=== PATIENT | male | born 1990 | race Hispanic/Latino ===

== ENCOUNTER 2023-06-18 11:07 | Outpatient (CLI) | payer OTHER | END 2023-06-18 11:08 | disposition home or self-care (01) | LOC: CSHWCC 11:07 | PROVIDERS: ATTEND Nurse Practitioner Family | DX: T81.31XD Disruption of external operation (surgical) wound, not elsewhere classified, subsequent encounter (principal); T86.821 Skin graft (allograft) (autograft) failure; C81.70 Other Hodgkin lymphoma, unspecified site; B20 Human immunodeficiency virus [HIV] disease | CPT/HCPCS: 99213; G0463 ==

== ENCOUNTER 2023-06-22 15:05 | Outpatient (CLI) | payer OTHER | END 2023-06-22 15:06 | disposition home or self-care (01) | LOC: CSHWCC 15:05 | PROVIDERS: ATTEND Nurse Practitioner Family | DX: T81.31XD Disruption of external operation (surgical) wound, not elsewhere classified, subsequent encounter (principal); T86.821 Skin graft (allograft) (autograft) failure; C81.70 Other Hodgkin lymphoma, unspecified site; B20 Human immunodeficiency virus [HIV] disease | CPT/HCPCS: 11043; 11046; 99213; G0463 ==

== ENCOUNTER 2023-06-29 16:17 | Outpatient (CLI) | payer OTHER | END 2023-06-29 16:18 | disposition home or self-care (01) | LOC: CSHWCC 16:17 | PROVIDERS: ATTEND Nurse Practitioner Family | DX: T81.31XD Disruption of external operation (surgical) wound, not elsewhere classified, subsequent encounter (principal); T86.821 Skin graft (allograft) (autograft) failure; C81.70 Other Hodgkin lymphoma, unspecified site; B20 Human immunodeficiency virus [HIV] disease | CPT/HCPCS: 11042; 11045 ==

== ENCOUNTER 2023-09-08 09:26 | Outpatient (CLI) | payer OTHER | END 2023-09-08 09:27 | disposition home or self-care (01) | LOC: CSHWCC 09:26 | PROVIDERS: ATTEND Nurse Practitioner Family | DX: T81.31XD Disruption of external operation (surgical) wound, not elsewhere classified, subsequent encounter (principal); T86.821 Skin graft (allograft) (autograft) failure; B20 Human immunodeficiency virus [HIV] disease; C81.70 Other Hodgkin lymphoma, unspecified site ==

== ENCOUNTER 2023-10-07 08:41 | Outpatient (CLI) | payer OTHER | END 2023-10-07 08:42 | disposition home or self-care (01) | LOC: CSHWCC 08:41 | PROVIDERS: ATTEND Nurse Practitioner Family | DX: S60.511D Abrasion of right hand, subsequent encounter (principal); T86.821 Skin graft (allograft) (autograft) failure; C81.70 Other Hodgkin lymphoma, unspecified site; B20 Human immunodeficiency virus [HIV] disease | CPT/HCPCS: 11042 ==

== ENCOUNTER 2023-10-14 14:34 | Outpatient (CLI) | payer OTHER | END 2023-10-14 14:35 | disposition home or self-care (01) | LOC: CSHWCC 14:34 | PROVIDERS: ATTEND Nurse Practitioner Family | DX: S60.511D Abrasion of right hand, subsequent encounter (principal); T86.821 Skin graft (allograft) (autograft) failure; B20 Human immunodeficiency virus [HIV] disease; C81.70 Other Hodgkin lymphoma, unspecified site | CPT/HCPCS: 11042 ==

== ENCOUNTER 2023-10-21 15:44 | Outpatient (CLI) | payer OTHER | END 2023-10-21 15:45 | disposition home or self-care (01) | LOC: CSHWCC 15:44 | PROVIDERS: ATTEND Preventive Medicine Undersea and Hyperbaric Medicine | DX: S60.511D Abrasion of right hand, subsequent encounter (principal); T86.821 Skin graft (allograft) (autograft) failure; C81.70 Other Hodgkin lymphoma, unspecified site; B20 Human immunodeficiency virus [HIV] disease | CPT/HCPCS: 99213; G0463 ==

== ENCOUNTER 2023-10-28 14:31 | Outpatient (CLI) | payer OTHER | END 2023-10-28 14:32 | disposition home or self-care (01) | LOC: CSHWCC 14:31 | PROVIDERS: ATTEND Nurse Practitioner Family | DX: S60.511D Abrasion of right hand, subsequent encounter (principal); B20 Human immunodeficiency virus [HIV] disease; T86.821 Skin graft (allograft) (autograft) failure; C81.70 Other Hodgkin lymphoma, unspecified site | CPT/HCPCS: 11042 ==

== ENCOUNTER 2023-11-11 10:21 | Outpatient (CLI) | payer OTHER | END 2023-11-11 10:22 | disposition home or self-care (01) | LOC: CSHWCC 10:21 | PROVIDERS: ATTEND Nurse Practitioner Family | DX: S60.511D Abrasion of right hand, subsequent encounter (principal); T86.821 Skin graft (allograft) (autograft) failure; C81.70 Other Hodgkin lymphoma, unspecified site; B20 Human immunodeficiency virus [HIV] disease | CPT/HCPCS: 99212; G0463 ==